=== PATIENT | female | born 1955 | race Caucasian/White ===

== ENCOUNTER 2018-09-21 22:58 | Inpatient (IN) | payer SELFPAY ==
[2018-09-21] MEDS ORDERED: NORMAL SALINE 1000 ML 500 ML IV ONE (23:52)
[2018-09-22 00:14] LABS: APPEARANCE,URINE CLEAR; BILIRUBIN,URINE NEGATIVE (NEGATIVE); COLOR,URINE YELLOW; GLUCOSE, URINE NEGATIVE (NEGATIVE); KETONES,URINE NEGATIVE (NEGATIVE); LEUKOCYTE ESTERASE,URINE NEGATIVE (NEGATIVE); NITRITE,URINE NEGATIVE (NEGATIVE); PROTEIN,URINE NEGATIVE (NEGATIVE); URINE SPECIFIC GRAVITY 1.003; UROBILINOGEN,URINE NEGATIVE mg/dL (<2.0)
[2018-09-22 00:29] LABS: ABSOLUTE BASOPHILS # (AUTO) 0.1 10^3/uL (0.0-0.2); ABSOLUTE EOSINOPHILS # (AUTO) 0.2 10^3/uL (0.0-0.6); ABSOLUTE LYMPHOCYTES (AUTO) 3.3 10^3/uL (0.5-4.7); ABSOLUTE MONOCYTES (AUTO) 0.7 10^3/uL (0.1-1.4); EOSINOPHILS % (AUTO) 2.4 % (0-6); HEMATOCRIT 45.6 % (36.0-47.0); HEMOGLOBIN 15.5 g/dL (12.0-15.5); LYMPHOCYTES % (AUTO) 46.2 % (13-45); MEAN CORPUSCULAR HEMOGLOBIN 31.9 pg (27.0-33.4); MEAN CORPUSCULAR VOLUME 94 fl (80-97); MONOCYTES % (AUTO) 9.4 % (3-13); PLATELET COUNT 247 10^3/uL (150-450); RED BLOOD COUNT 4.85 10^6/uL (3.72-5.28); RED CELL DISTRIBUTION WIDTH 17.3 % (11.5-14.0); TOTAL CELLS COUNTED % (AUTO) 100 %; WHITE BLOOD COUNT 7.2 10^3/uL (4.0-10.5)
[2018-09-22] MEDS ORDERED: DILTIAZEM HCL INJ 25 MG/5 ML VIAL IV ONE (00:32)
--- NOTE | 2018-09-22 00:32 | ER Document Report ---
Entered by JN MCGRAW SCRIBE 09/21/18 [id number] Acting as scribe for:VIVIENNE CALLEJAS MD ED Cardiac - General Chief Complaint: Palpitations Stated Complaint: RAPID HEART RATE,PAIN IN NECK,HEART HISTORY Time Seen by Provider: 09/21/18 23:31 Primary Care Provider: SANTIAGO SALAZAR PA-C [Primary Care Provider] - Follow up as needed Mode of Arrival: Ambulatory Information source: Patient Notes: Patient is a homeless 63-year-old female with SVT who presents to the emergency department today with complaints of an elevated heart rate. Patient did not fill any of the prescriptions that she was discharged with yesterday (09/20/18). Patient states the last medications she has taken were given yesterday morning prior to being discharged from here. Patient states she did drink and smoke since discharge. Patient is currently intoxicated. TRAVEL OUTSIDE OF THE [place] IN LAST 30 DAYS: No - Related Data Allergies/Adverse Reactions: lisinopril Allergy (Verified 09/18/18 02:12) Past Medical History - General Information source: Patient, [facility] Records - Social History Smoking Status: Current Every Day Smoker Cigarette use (# per day): Yes Frequency of alcohol use: Heavy Lives with: Homeless Family History: COPD, Hypertension - Past Medical History Cardiac Medical History: Reports: Hx Atrial Fibrillation, Hx Hypertension Pulmonary Medical History: Reports: Hx COPD GI Medical History: Reports: Hx Hiatal Hernia Psychiatric Medical History: Reports: Hx Depression - anxiety Past Surgical History: Reports: Hx Hysterectomy - Immunizations Hx Pneumococcal Vaccination: 02/17/17 Review of Systems - Review of Systems Constitutional: No symptoms reported EENT: No symptoms reported Cardiovascular: See HPI, Heart racing Respiratory: No symptoms reported Gastrointestinal: No symptoms reported Genitourinary: No symptoms reported Female Genitourinary: No symptoms reported Musculoskeletal: No symptoms reported Skin: No symptoms reported Hematologic/Lymphatic: No symptoms reported Neurological/Psychological: No symptoms reported -: Yes All other systems reviewed and negative Physical Exam - Vital signs Vitals: Temp Pulse Resp BP Pulse Ox 98.4 F 147 H 20 93/74 L 96 09/21/18 23:20 09/21/18 23:20 09/21/18 23:20 09/21/18 23:20 09/21/18 23:20 - Notes Notes: Physical Exam: General: Alert. HEENT: Normocephalic. Atraumatic. PERRL. Extraocular movements intact. Oropharynx clear. Neck: Supple. Non-tender. Respiratory: No respiratory distress. Coarse breath sounds with rhonchi bilaterally consistent with extensive smoking history. Cardiovascular: Tachycardic into the 150s. Abdominal: Normal Inspection. Non-tender. No distension. Normal Bowel Sounds. Back: Grossly normal Extremities: Moves all four extremities. Upper extremities: Normal inspection. Normal ROM. Lower extremities: Normal inspection. No edema. Normal ROM. Neurological: Normal cognition. AAOx4. Normal speech. Psychological: Normal affect. Normal Mood. Skin: Warm. Dry. Normal color. Course - Re-evaluation Re-evalutation: 09/22/18 01:07 Reviewing the monitor shows the patient is in a normal sinus rhythm at this time, with frequent premature beats. The nurse reports that she had not given the patient the Cardizem ordered previously. - Vital Signs Vital signs: Temp Pulse Resp BP Pulse Ox 98.4 F 147 H 17 104/82 95 09/21/18 23:20 09/21/18 23:20 09/22/18 01:01 09/22/18 01:00 09/22/18 01:01 - Laboratory Result Diagrams: 09/21/18 23:50 09/22/18 00:20 Laboratory results interpreted by me: 09/21/18 09/21/18 09/22/18 23:50 23:58 00:20 RDW 17.3 H Seg Neutrophils % 41.0 L Lymphocytes % 46.2 H Sodium Potassium Chloride Carbon Dioxide BUN Creatinine Calcium NT-Pro-B Natriuret Pep 3550 H Total Protein Albumin Urine Blood SMALL H 09/22/18 00:20 RDW Seg Neutrophils % Lymphocytes % Sodium 128.3 L Potassium 3.0 L* Chloride 90 L Carbon Dioxide 31 H BUN 3 L Creatinine 0.45 L Calcium 8.1 L NT-Pro-B Natriuret Pep Total Protein 5.2 L Albumin 3.0 L Urine Blood - Diagnostic Test Radiology reviewed: Image reviewed, Reports reviewed - Chest x-ray shows elevated left hemidiaphragm with mild atelectasis at the bases. There is no change from chest x-ray done 4 days ago. - EKG Interpretation by Ri EKG shows normal: [place], Intervals, QRS Complexes, ST-T Waves. abnormal: Sinus rhythm Rate: Tachycardia - 141 Rhythm: A.Fib - Consults Dr. Mireles Time consulted: 01:11 Consulted provider: will come to ER Critical Care Note - Critical Care Note Total time excluding time spent on procedures (mins): 35 Discharge - Discharge Clinical Impression: Atrial fibrillation with RVR, Homelessness, Noncompliance, Tobacco dependence, Hypokalemia Alcohol intoxication Qualifiers: Complication of substance-induced condition: with unspecified complication Qualified Code(s): F10.929 - Alcohol use, unspecified with intoxication, unspecified Hypotension Qualifiers: Hypotension type: unspecified hypotension type Qualified Code(s): I95.9 - Hypotension, unspecified Condition: Stable Disposition: ADMITTED INPATIENT Admitting Provider: [facility] (Hospitalist) Unit Admitted: I[facility]U Referrals: SANTIAGO SALAZAR PA-C [Primary Care Provider] - Follow up as needed Scribe Attestation: 09/22/18 00:35 I personally performed the services described in the documentation, reviewed and edited the documentation which was dictated to the scribe in my presence, and it accurately records my words and actions. I personally performed the services described in the documentation, reviewed and edited the documentation which was dictated to the scribe in my presence, and it accurately records my words and actions.
[2018-09-22] MEDS ORDERED: DILTIAZEM HCL/D5W 125 MG/125 ML RTUINJ IV PRN ×2 (00:33→01:43)
[2018-09-22 00:52] LABS: ALCOHOL 107 mg/dL (NONE DETECTED); ALKALINE PHOSPHATASE 56 U/L (38-126); ANION GAP 7 (5-19); ASPARTATE AMINO TRANSFERASE 22 U/L (14-36); BILIRUBIN,DIRECT 0.2 mg/dL (0.0-0.4); BILIRUBIN,TOTAL 0.4 mg/dL (0.2-1.3); BLOOD UREA NITROGEN 3 mg/dL (7-20); CALCIUM 8.1 mg/dL (8.4-10.2); CARBON DIOXIDE 31 mmol/L (22-30); CHLORIDE 90 mmol/L (98-107); CREATINE KINASE 54 U/L (30-135); GLUCOSE 79 mg/dL (75-110); TOTAL PROTEIN 5.2 g/dL (6.3-8.2)
[2018-09-22] MEDS ORDERED: POTASSIUM CHLORIDE 20 MEQ PACKET PO ONE (01:04)
[2018-09-22 01:07] LABS: CREATINE KINASE MB 1.01 ng/mL (<4.55); NT PRO BNP 3550 pg/mL (5-900)
[2018-09-22 01:09] LABS: TROPONIN I < 0.012 ng/mL
--- NOTE | 2018-09-22 01:32 | RADIOLOGY REPORT (SQ) ---
CLINICAL HISTORY: A. fib with RVR COMPARISON: September 18, 2018. TECHNIQUE: XR CHEST 1 VIEW 09/21/2018 11:38 PM CDT FINDINGS: Cardiac silhouette is normal in size. Lungs are clear without consolidation, atelectasis, mass or edema. There is no pleural effusion. There is no pneumothorax. There are no acute osseous findings. Left diaphragm is elevated. IMPRESSION: Clear lungs.
[2018-09-22] MEDS ORDERED: IPRATROPIUM/ALBUTEROL 0.5-2.5 MG/3 ML AMPUL NEB PRN (01:40)
[2018-09-22] MEDS ORDERED: ENOXAPARIN SODIUM INJ 60 MG/0.6 ML DISP.SYRIN SUBCUT ONE (02:15)
[2018-09-22 02:36] LABS: URINE AMPHETAMINES SCREEN NEGATIVE; URINE BARBITURATES SCREEN NEGATIVE; URINE BENZODIAZEPINES SCREEN NEGATIVE; URINE COCAINE SCREEN NEGATIVE; URINE MARIJUANA (THC) SCREEN NEGATIVE; URINE METHADONE SCREEN NEGATIVE; URINE PHENCYCLIDINE SCREEN NEGATIVE
[2018-09-22] MEDS: MAGNESIUM SULFATE/D5W 1 GM/100 ML RTUPB IV SCH ×3 (03:03→06:40)
[2018-09-22] MEDS: PANTOPRAZOLE SODIUM 40 MG TABLET.DR PO SCH ×2 (05:23→18:24)
[2018-09-22] MEDS ORDERED: LEVALBUTEROL HCL NEB 1.25 MG/3 ML AMPUL NEB PRN (05:56)
--- NOTE | 2018-09-22 05:56 | PDOC H&P ---
History of Present Illness Admission Date/PCP: 09/22/18 01:23 SANTIAGO SALAZAR PA-C Patient complains of: Palpitations History of Present Illness: JOSE M PINEDA is a 63 year old female with a past medical history of oxygen dependent COPD, paroxysmal atrial fibrillation without anticoagulation, tobacco and alcohol dependence. She was admitted for exacerbation of the above September 18, discharged September 20, 2018 but failed to fill prescriptions or modify lifestyl e. She presents acutely intoxicated with palpitations and a heart rate of 150, hypomagnesemia, hypo-kalemia and hyponatremia. She is started on IV Cardizem and referred to the hospitalist for admission. Patient states she is now homeless. Past Medical History Cardiac Medical History: Reports: Atrial Fibrillation, Hypertension Pulmonary Medical History: Reports: Chronic Obstructive Pulmonary Disease (COPD) GI Medical History: Reports: Hiatal Hernia Psychiatric Medical History: Reports: Alcohol Dependency, Depression - anxiety, Tobacco Dependency Past Surgical History Past Surgical History: Reports: Hysterectomy Social History Information Source: Patient, [facility] Records Lives with: Homeless Smoking Status: Current Every Day Smoker Frequency of Alcohol Use: Heavy Hx Recreational Drug Use: No Drugs: None Hx Prescription Drug Abuse: No - Advance Directive Resuscitation Status: Full Code Family History Family History: COPD, Hypertension Parental Family History Reviewed: Yes Children Family History Reviewed: Yes Sibling(s) Family History Reviewed.: Yes Medication/Allergy Home Medications: Duloxetine HCl [Cymbalta] 60 mg PO Q12 09/18/18 Magnesium Oxide [Mag-Ox 400 mg Tablet] 400 mg PO BID 09/18/18 Metoprolol Tartrate [Lopressor 50 mg Tablet] 50 mg PO Q12 09/18/18 Potassium Chloride [Klor-Con 10 Meq Capsule ER] 20 meq PO DAILY 09/18/18 Acetaminophen [Tylenol 325 mg Tablet] 650 mg PO Q4HP PRN tablet 09/20/18 Albuterol Sulfate [Proair Hfa Inhalation Aerosol 8.5 gm Mdi] 2 puff IH Q4HP PRN #1 mdi 09/20/18 Aspirin [Aspirin 81 mg Chewable Tablet] 81 mg PO DAILY #90 tab.chew 09/20/18 Clonazepam [Klonopin 1 mg Tablet] 1 mg PO TID #10 tablet 09/20/18 Diltiazem HCl [Diltiazem 12Hr ER] 120 mg PO BID #60 cap.er.12h 09/20/18 Docusate Sodium [Colace 100 mg Capsule] 100 mg PO BID capsule 09/20/18 Fluticasone Propionate [Flonase Nasal [place] 50 Mcg/[place] 16 gm] 2 spray NASL Q12 #1 spray.pump 09/20/18 Fluticasone/Vilanterol [Breo 200-25 Mcg Ellipta 14 Dose/Dpi] 1 inh IH DAILY #1 inhaler 09/20/18 Montelukast Sodium [Singulair 10 mg Tablet] 10 mg PO DAILY #30 tablet 09/20/18 Nicotine [Nicoderm 21 mg/24 Hr Transderm Patch] 1 each TD DAILY #30 patch.td24 09/20/18 Tiotropium [place] [Spiriva [place]er 5 Cap/Kit (18 Mcg/Cap)] 1 cap IH DAILY #1 kit 09/20/18 Allergies/Adverse Reactions: lisinopril Allergy (Verified 09/18/18 02:12) Review of Systems ROS unobtainable: Due to mental status Physical Exam Vital Signs: Temp Pulse Resp BP Pulse Ox 97.6 F 84 16 116/77 90 L 09/22/18 05:28 09/22/18 05:28 09/22/18 05:28 09/22/18 05:28 09/22/18 05:28 Intake & Output 09/20/18 09/21/18 09/22/18 11:59 11:59 11:59 Intake Total 700 Balance 700 Weight 55.7 kg General appearance: PRESENT: cooperative, disheveled, well-developed. ABSENT: well-nourished Head exam: PRESENT: atraumatic, normocephalic Eye exam: PRESENT: conjunctiva pink, EOMI, PERRLA. ABSENT: scleral icterus Ear exam: PRESENT: normal external ear exam Mouth exam: PRESENT: moist, tongue midline Neck exam: ABSENT: carotid bruit, JVD, lymphadenopathy, thyromegaly Respiratory exam: PRESENT: accessory muscle use, clear to auscultation karlo. ABSENT: rales, rhonchi, wheezes Cardiovascular exam: PRESENT: irregular rhythm. ABSENT: diastolic murmur, rubs, systolic murmur Pulses: PRESENT: normal dorsalis pedis pul Vascular exam: PRESENT: normal capillary refill GI/Abdominal exam: PRESENT: normal bowel sounds, soft. ABSENT: distended, guarding, mass, organolmegaly, rebound, tenderness Rectal exam: PRESENT: deferred Extremities exam: PRESENT: full ROM. ABSENT: calf tenderness, clubbing, pedal edema Neurological exam: PRESENT: alert, altered, awake, oriented to person, oriented to place, CN II-XII grossly intact Psychiatric exam: PRESENT: appropriate affect, normal mood, unusual affect. ABSENT: homicidal ideation, suicidal ideation Skin exam: PRESENT: dry, intact, warm. ABSENT: cyanosis, rash Results Laboratory Results: 09/21/18 23:50 09/22/18 00:20 09/21/18 09/21/18 09/21/18 23:50 23:50 23:58 WBC 7.2 RBC 4.85 Hgb 15.5 Hct 45.6 MCV 94 MCH 31.9 MCHC 34.0 RDW 17.3 H Plt Count 247 Seg Neutrophils % 41.0 L Lymphocytes % 46.2 H Monocytes % 9.4 Eosinophils % 2.4 Basophils % 1.0 Absolute Neutrophils 3.0 Absolute Lymphocytes 3.3 Absolute Monocytes 0.7 Absolute Eosinophils 0.2 Absolute Basophils 0.1 Sodium Cancelled Potassium Cancelled Chloride Cancelled Carbon Dioxide Cancelled Anion Gap Cancelled BUN Cancelled Creatinine Cancelled Est GFR ( Amer) Cancelled Est GFR (Non-Af Amer) Cancelled Glucose Cancelled Calcium Cancelled Magnesium Total Bilirubin Cancelled AST Cancelled Alkaline Phosphatase Cancelled Total Protein Cancelled Albumin Cancelled Urine Color YELLOW Urine Appearance CLEAR Urine pH 6.0 Ur Specific [place] 1.003 Urine Protein NEGATIVE Urine Glucose (UA) NEGATIVE Urine Ketones NEGATIVE Urine Blood SMALL H Urine Nitrite NEGATIVE Ur Leukocyte Esterase NEGATIVE Urine WBC (Auto) 2 Urine RBC (Auto) 1 09/22/18 09/22/18 00:20 00:20 WBC RBC Hgb Hct MCV MCH MCHC RDW Plt Count Seg Neutrophils % Lymphocytes % Monocytes % Eosinophils % Basophils % Absolute Neutrophils Absolute Lymphocytes Absolute Monocytes Absolute Eosinophils Absolute Basophils Sodium 128.3 L Potassium 3.0 L* Chloride 90 L Carbon Dioxide 31 H Anion Gap 7 BUN 3 L Creatinine 0.45 L Est GFR ( Amer) > 60 Est GFR (Non-Af Amer) > 60 Glucose 79 Calcium 8.1 L Magnesium 1.3 L Total Bilirubin 0.4 AST 22 Alkaline Phosphatase 56 Total Protein 5.2 L Albumin 3.0 L Urine Color Urine Appearance Urine pH Ur Specific [place] Urine Protein Urine Glucose (UA) Urine Ketones Urine Blood Urine Nitrite Ur Leukocyte Esterase Urine WBC (Auto) Urine RBC (Auto) 09/21/18 09/21/18 09/22/18 23:50 23:50 00:20 Creatine Kinase Cancelled CK-MB (CK-2) Cancelled 1.01 Troponin I Cancelled < 0.012 NT-Pro-B Natriuret Pep Cancelled 3550 H 09/22/18 00:20 Creatine Kinase 54 CK-MB (CK-2) Troponin I NT-Pro-B Natriuret Pep Impressions: Chest X-Ray 09/21/18 23:38 IMPRESSION: Clear lungs. Assessment and Plan - Diagnosis (1) Atrial fibrillation with RVR Is this a current diagnosis for this admission?: Yes Plan: Secondary to noncompliance, some decompensation of COPD, IV Cardizem and anticoagulation (2) Hyponatremia Is this a current diagnosis for this admission?: Yes Plan: Volume overload, fluid restriction. Follow-up chemistry (3) Hypomagnesemia Is this a current diagnosis for this admission?: Yes Plan: Repletion and reevaluation of chemistry and magnesium (4) Alcohol intoxication Qualifiers: Complication of substance-induced condition: with unspecified complication Qualified Code(s): F10.929 - Alcohol use, unspecified with intoxication, unspecified Is this a current diagnosis for this admission?: Yes Plan: Thiamine, folic acid, supportive measures, discharge planning (5) Hypokalemia Is this a current diagnosis for this admission?: Yes Plan: Possible artifact from hypomagnesemia, replete both and reevaluate chemistry (6) Tobacco dependence Is this a current diagnosis for this admission?: Yes Plan: Cessation counseling and nicotine replacement offered - Time Time Spent with patient: 35 or more minutes - Inpatient Certification Medical Necessity: Need Close Monitoring Due to Risk of Patient Decompensation
[2018-09-22] MEDS ORDERED: HEPARIN SOD (PORCINE) 5,000 UNIT/ML 1 ML VIAL SUBCUT SCH (06:00)
[2018-09-22 07:19] LABS: ANION GAP 5 (5-19); BLOOD UREA NITROGEN 4 mg/dL (7-20); CALCIUM 8.5 mg/dL (8.4-10.2); CARBON DIOXIDE 35 mmol/L (22-30); CHLORIDE 95 mmol/L (98-107); GLUCOSE 88 mg/dL (75-110)
--- NOTE | 2018-09-22 07:37 | EKG REPORT ---
SEVERITY:- ABNORMAL ECG - ATRIAL FIBRILLATION,RVR, V-RATE 106-163 : Confirmed by: Dwayne Cruz MD 22-Sep-2018 07:36:21
[2018-09-22] MEDS ORDERED: IPRATROPIUM BROMIDE 0.02% NEB 0.5 MG/2.5 ML AMPUL NEB SCH (08:00)
[2018-09-22] MEDS: IPRATROPIUM BROMIDE 0.02% NEB 0.5 MG/2.5 ML AMPUL NEB SCH ×2 (08:10→16:30)
[2018-09-22] MEDS: FOLIC ACID 1 MG TABLET PO SCH (09:59)
[2018-09-22] MEDS: ENOXAPARIN SODIUM INJ 60 MG/0.6 ML DISP.SYRIN SUBCUT SCH ×2 (09:59→21:47)
[2018-09-22] MEDS: THIAMINE HCL 100 MG TABLET PO SCH (09:59)
--- NOTE | 2018-09-22 18:29 | EKG REPORT ---
SEVERITY:- BORDERLINE ECG - SINUS RHYTHM BORDERLINE T ABNORMALITIES, ANT-LAT LEADS : Confirmed by: Dwayne Cruz MD 22-Sep-2018 18:28:38
[2018-09-23] MEDS: IPRATROPIUM BROMIDE 0.02% NEB 0.5 MG/2.5 ML AMPUL NEB SCH ×2 (00:25→08:40)
[2018-09-23 04:51] LABS: HEMATOCRIT 42.4 % (36.0-47.0); HEMOGLOBIN 14.2 g/dL (12.0-15.5); MEAN CORPUSCULAR HEMOGLOBIN 31.8 pg (27.0-33.4); MEAN CORPUSCULAR HGB CONC 33.6 g/dL (32.0-36.0); MEAN CORPUSCULAR VOLUME 95 fl (80-97); PLATELET COUNT 190 10^3/uL (150-450); RED BLOOD COUNT 4.48 10^6/uL (3.72-5.28); RED CELL DISTRIBUTION WIDTH 17.2 % (11.5-14.0); WHITE BLOOD COUNT 5.2 10^3/uL (4.0-10.5)
[2018-09-23] MEDS: PANTOPRAZOLE SODIUM 40 MG TABLET.DR PO SCH (05:12)
[2018-09-23 05:15] LABS: BLOOD UREA NITROGEN 8 mg/dL (7-20); CALCIUM 9.1 mg/dL (8.4-10.2); CARBON DIOXIDE 36 mmol/L (22-30); GLUCOSE 93 mg/dL (75-110); POTASSIUM 4.7 mmol/L (3.6-5.0)
[2018-09-23 05:20] LABS: ANION GAP 4 (5-19); CHLORIDE 100 mmol/L (98-107)
[2018-09-23 06:06] LABS: APPEARANCE,URINE CLEAR; BILIRUBIN,URINE NEGATIVE (NEGATIVE); COLOR,URINE YELLOW; GLUCOSE, URINE NEGATIVE (NEGATIVE); KETONES,URINE NEGATIVE (NEGATIVE); LEUKOCYTE ESTERASE,URINE TRACE (NEGATIVE); NITRITE,URINE NEGATIVE (NEGATIVE); PROTEIN,URINE NEGATIVE (NEGATIVE); URINE SPECIFIC GRAVITY 1.006; UROBILINOGEN,URINE NEGATIVE mg/dL (<2.0)
--- NOTE | 2018-09-23 06:35 | PDOC PROGRESS REPORT ---
Subjective Progress Note for:: 09/22/18 Subjective:: Patient resting comfortably in bed. She denies any chest pain or shortness of breath. She feels comfortable. Reason For Visit: AFIB Hypertension Physical Exam Vital Signs: Temp Pulse Resp BP Pulse Ox 98.0 F 86 18 111/75 90 L 09/22/18 08:02 09/22/18 08:10 09/22/18 08:10 09/22/18 08:02 09/22/18 08:10 Intake & Output 09/21/18 09/22/18 09/23/18 06:59 06:59 06:59 Intake Total 700 Balance 700 Weight 56.3 kg General appearance: PRESENT: no acute distress, cooperative, well-developed Head exam: PRESENT: atraumatic, normocephalic Eye exam: PRESENT: conjunctiva pink. ABSENT: scleral icterus Ear exam: PRESENT: normal external ear exam Mouth exam: PRESENT: moist, tongue midline Respiratory exam: PRESENT: clear to auscultation karlo, decreased breath sounds - At bases, symmetrical, unlabored. ABSENT: accessory muscle use, rales, rhonchi, tachypnea, wheezes Cardiovascular exam: PRESENT: RRR, +S1, +S2, other - Did not appreciate any murmurs or additional heart sounds. GI/Abdominal exam: PRESENT: normal bowel sounds, soft. ABSENT: distended, tenderness Rectal exam: PRESENT: deferred Extremities exam: ABSENT: joint swelling, pedal edema Musculoskeletal exam: PRESENT: ambulatory, normal inspection Neurological exam: PRESENT: alert, awake, oriented to person, oriented to place, oriented to time, oriented to situation, CN II-XII grossly intact Psychiatric exam: PRESENT: appropriate affect, normal mood. ABSENT: agitated, anxious Focused psych exam: ABSENT: delusional, pressured speech, restlessness Skin exam: PRESENT: dry, warm. ABSENT: rash Results Laboratory Results: 09/21/18 23:50 09/22/18 06:47 09/21/18 09/21/18 09/21/18 23:50 23:50 23:58 WBC 7.2 RBC 4.85 Hgb 15.5 Hct 45.6 MCV 94 MCH 31.9 MCHC 34.0 RDW 17.3 H Plt Count 247 Seg Neutrophils % 41.0 L Lymphocytes % 46.2 H Monocytes % 9.4 Eosinophils % 2.4 Basophils % 1.0 Absolute Neutrophils 3.0 Absolute Lymphocytes 3.3 Absolute Monocytes 0.7 Absolute Eosinophils 0.2 Absolute Basophils 0.1 Sodium Cancelled Potassium Cancelled Chloride Cancelled Carbon Dioxide Cancelled Anion Gap Cancelled BUN Cancelled Creatinine Cancelled Est GFR ( Amer) Cancelled Est GFR (Non-Af Amer) Cancelled Glucose Cancelled Calcium Cancelled Magnesium Total Bilirubin Cancelled AST Cancelled Alkaline Phosphatase Cancelled Total Protein Cancelled Albumin Cancelled Urine Color YELLOW Urine Appearance CLEAR Urine pH 6.0 Ur Specific [place] 1.003 Urine Protein NEGATIVE Urine Glucose (UA) NEGATIVE Urine Ketones NEGATIVE Urine Blood SMALL H Urine Nitrite NEGATIVE Ur Leukocyte Esterase NEGATIVE Urine WBC (Auto) 2 Urine RBC (Auto) 1 09/22/18 09/22/18 09/22/18 00:20 00:20 06:47 WBC RBC Hgb Hct MCV MCH MCHC RDW Plt Count Seg Neutrophils % Lymphocytes % Monocytes % Eosinophils % Basophils % Absolute Neutrophils Absolute Lymphocytes Absolute Monocytes Absolute Eosinophils Absolute Basophils Sodium 128.3 L 135.1 L Potassium 3.0 L* 4.0 D Chloride 90 L 95 L Carbon Dioxide 31 H 35 H Anion Gap 7 5 BUN 3 L 4 L Creatinine 0.45 L 0.45 L Est GFR ( Amer) > 60 > 60 Est GFR (Non-Af Amer) > 60 > 60 Glucose 79 88 Calcium 8.1 L 8.5 Magnesium 1.3 L Total Bilirubin 0.4 AST 22 Alkaline Phosphatase 56 Total Protein 5.2 L Albumin 3.0 L Urine Color Urine Appearance Urine pH Ur Specific [place] Urine Protein Urine Glucose (UA) Urine Ketones Urine Blood Urine Nitrite Ur Leukocyte Esterase Urine WBC (Auto) Urine RBC (Auto) 09/21/18 09/21/18 09/22/18 23:50 23:50 00:20 Creatine Kinase Cancelled CK-MB (CK-2) Cancelled 1.01 Troponin I Cancelled < 0.012 NT-Pro-B Natriuret Pep Cancelled 3550 H 09/22/18 09/22/18 00:20 06:47 Creatine Kinase 54 CK-MB (CK-2) Troponin I < 0.012 NT-Pro-B Natriuret Pep Impressions: Chest X-Ray 09/21/18 23:38 IMPRESSION: Clear lungs. Assessment and Plan - Diagnosis (1) Atrial fibrillation with RVR Is this a current diagnosis for this admission?: Yes Plan: Secondary to noncompliance, some decompensation of COPD, IV Cardizem and anticoagulation 09/22/2018-back on diltiazem the patient in fact is in sinus rhythm. She was given 10 mg of intravenous diltiazem. Because she exhibits good rate control I will start her on low-dose metoprolol succinate 25 mg daily. I will resume her aspirin 81 mg daily. Her noncompliance puts her at high risk regarding anticoagulation therapy. (2) Hyponatremia Is this a current diagnosis for this admission?: Yes Plan: Volume overload, fluid restriction. Follow-up chemistry 09/22/2018-with fluid restriction the patient's serum sodium is normal. We will gradually increase her fluid allowance. Follow-up serum sodium level as an outpatient. (3) Hypomagnesemia Is this a current diagnosis for this admission?: Yes Plan: 09/22/2018-without magnesium supplement her magnesium has normalized. Continue to monitor magnesium level. (4) Alcohol intoxication Qualifiers: Complication of substance-induced condition: with unspecified complication Qualified Code(s): F10.929 - Alcohol use, unspecified with intoxication, unspecified Is this a current diagnosis for this admission?: Yes Plan: Thiamine, folic acid, supportive measures, discharge planning 09/22/2018-continue to encourage abstinence. (5) Hypokalemia Is this a current diagnosis for this admission?: Yes Plan: She was given a dose of potassium chloride and serum potassium level is normal. (6) Tobacco dependence Is this a current diagnosis for this admission?: Yes Plan: 09/22/2018-encourage cessation. - Time Time Spent with patient: 15-24 minutes Medications reviewed and adjusted accordingly: Yes Anticipated discharge: Home Within: within 24 hours
[2018-09-23] MEDS ORDERED: MAGNESIUM OXIDE 400 MG TABLET PO SCH (08:00)
[2018-09-23] MEDS ORDERED: METOPROLOL SUCCINATE 25 MG TAB.SR.24H PO SCH (10:00)
[2018-09-23] MEDS ORDERED: ASPIRIN 81 MG TABLET, CHEWABLE PO SCH (10:00)
[2018-09-23] MEDS: ENOXAPARIN SODIUM INJ 60 MG/0.6 ML DISP.SYRIN SUBCUT SCH (10:20)
[2018-09-23] MEDS: THIAMINE HCL 100 MG TABLET PO SCH (10:24)
[2018-09-23] MEDS: FOLIC ACID 1 MG TABLET PO SCH (10:24)
--- NOTE | 2018-09-23 10:40 | PDOC DISCHARGE SUMMARY ---
General - Admit/Disc Date/PCP Admission Date/Primary Care Provider: 09/22/18 01:23 SANTIAGO SALAZAR PA-C Discharge Date: 09/23/18 - Discharge Diagnosis (1) Atrial fibrillation with RVR Is this a current diagnosis for this admission?: Yes Summary: The patient is supposed to be on metoprolol at home. I do not believe she was taking her medication. With 1 dose of IV diltiazem she is back in sinus rhythm. Her pulse rate is well controlled and so I have instructed her to decrease her metoprolol (which she has at home) from 50 mg twice daily to 25 mg twice daily. She will continue aspirin therapy. (2) Hyponatremia Is this a current diagnosis for this admission?: Yes Summary: Resolved. Follow-up with primary care provider for electrolyte testing. (3) Hypomagnesemia Is this a current diagnosis for this admission?: Yes Summary: Continue magnesium oxide 400 mg twice daily as an outpatient. (4) Alcohol intoxication Is this a current diagnosis for this admission?: Yes Summary: Serum alcohol level was 107 on admission. Suggest abstinence. (5) Hypokalemia Is this a current diagnosis for this admission?: Yes (6) Tobacco dependence Is this a current diagnosis for this admission?: Yes Summary: Patient is a former nurse. I strongly encouraged her to discontinue tobacco use as she is certainly familiar with the risks. - Additional Information Resuscitation Status: Full Code Discharge Diet: Cardiac Discharge Activity: Activity As Tolerated Prescriptions: Metoprolol Tartrate [Lopressor 25 mg Tablet] 25 mg PO Q12 #60 tab Home Medications: Magnesium Oxide [Mag-Ox 400 mg Tablet] 400 mg PO BID 09/18/18 Albuterol Sulfate [Proair HFA Inhalation Aerosol 8.5 gm MDI] 2 puff IH Q4HP PRN #1 mdi 09/20/18 Aspirin [Aspirin 81 mg Chewable Tablet] 81 mg PO DAILY #90 tab.chew 09/20/18 Clonazepam [Klonopin 1 mg Tablet] 1 mg PO TID #10 tablet 09/20/18 Montelukast Sodium [Singulair 10 mg Tablet] 10 mg PO DAILY #30 tablet 09/20/18 Folic Acid [Folvite 1 mg Tablet] 1 mg PO DAILY tablet 09/23/18 Metoprolol Tartrate [Lopressor 25 mg Tablet] 25 mg PO Q12 #60 tab 09/23/18 History of Present Illness Patient complains of: Rapid heart rate History of Present Illness: JOSE M PINEDA is a 63 year old female with a history of hypertension, COPD, alcoh ol dependence and tobacco dependence. She was just discharged from the hospital September 20. She returns acutely intoxicated. She never filled her prescriptions from her discharge. She was in atrial fibrillation with rapid ventricular response. She received 1 dose of IV diltiazem and converted back to sinus rhythm. Her biggest issues are her tobacco and alcohol dependence. I did ask her to follow-up with her primary care provider for ongoing management. She does have an albuterol inhaler for as needed use. She might benefit from pulmonary function testing as an outpatient with medication modification based on those results. We will test her on room air and if her oxygen saturation is below 88% we will order home oxygen therapy. Hospital Course Hospital Course: She had an unremarkable hospital course. Electrolyte abnormalities corrected q uickly. As noted above she converted to normal sinus rhythm with excellent rate control. She states that she is on metoprolol tartrate 50 mg twice daily at home. I suggested she decrease her dose but otherwise is stable for discharge. Physical Exam Vital Signs: Temp Pulse Resp BP Pulse Ox 97.9 F 75 18 120/73 90 L 09/23/18 07:15 09/23/18 08:42 09/23/18 08:42 09/23/18 07:15 09/23/18 08:42 Intake & Output 09/22/18 09/23/18 09/24/18 06:59 06:59 06:59 Intake Total 700 984 Output Total 500 Balance 700 484 Weight 56.3 kg 52.4 kg General appearance: PRESENT: no acute distress, thin, well-developed Head exam: PRESENT: atraumatic, normocephalic Eye exam: PRESENT: conjunctiva pink. ABSENT: scleral icterus Ear exam: PRESENT: normal external ear exam Respiratory exam: PRESENT: clear to auscultation karlo, symmetrical, unlabored. ABSENT: rales, rhonchi, tachypnea, wheezes Cardiovascular exam: PRESENT: RRR, +S1, +S2 GI/Abdominal exam: PRESENT: normal bowel sounds, soft. ABSENT: distended, tenderness Rectal exam: PRESENT: deferred Gentrourinary exam: ABSENT: indwelling catheter Extremities exam: ABSENT: joint swelling, pedal edema Musculoskeletal exam: PRESENT: normal inspection Neurological exam: PRESENT: alert, awake, oriented to person, oriented to place, oriented to time, oriented to situation, CN II-XII grossly intact Psychiatric exam: PRESENT: appropriate affect. ABSENT: agitated, anxious Focused psych exam: ABSENT: delusional, restlessness Results Laboratory Results: 09/23/18 04:11 09/23/18 04:11 09/23/18 09/23/18 09/23/18 04:11 04:11 05:20 WBC 5.2 RBC 4.48 Hgb 14.2 Hct 42.4 MCV 95 MCH 31.8 MCHC 33.6 RDW 17.2 H Plt Count 190 Sodium 139.8 Potassium 4.7 Chloride 100 Carbon Dioxide 36 H Anion Gap 4 L BUN 8 Creatinine 0.65 Est GFR ( Amer) > 60 Est GFR (Non-Af Amer) > 60 Glucose 93 Calcium 9.1 Magnesium 2.1 Urine Color YELLOW Urine Appearance CLEAR Urine pH 6.0 Ur Specific [place] 1.006 Urine Protein NEGATIVE Urine Glucose (UA) NEGATIVE Urine Ketones NEGATIVE Urine Blood NEGATIVE Urine Nitrite NEGATIVE Ur Leukocyte Esterase TRACE H Urine WBC (Auto) 2 Urine RBC (Auto) 0 09/21/18 09/21/18 09/22/18 23:50 23:50 00:20 Creatine Kinase Cancelled CK-MB (CK-2) Cancelled 1.01 Troponin I Cancelled < 0.012 NT-Pro-B Natriuret Pep Cancelled 3550 H 09/22/18 09/22/18 09/22/18 00:20 06:47 13:11 Creatine Kinase 54 CK-MB (CK-2) Troponin I < 0.012 < 0.012 NT-Pro-B Natriuret Pep 09/22/18 09/23/18 18:38 04:11 Creatine Kinase CK-MB (CK-2) Troponin I < 0.012 NT-Pro-B Natriuret Pep 1010 H Impressions: Chest X-Ray 09/21/18 23:38 IMPRESSION: Clear lungs. Qualifiers - * PATIENT BEING DISCHARGED WITH ANY OF THE FOLLOWING DIAGNOSIS: No Acute Heart Failure - Is this a Heart Failure Patient?: No Plan Discharge Plan: Discharging to home. If resting oximetry is less than 88% will prescribe home oxygen therapy. Patient states that she does not wear oxygen at home normally. Time Spent: Greater than 30 Minutes
[2018-09-23 12:11] VITALS: BP 93/74
== END 2018-09-23 13:05 | disposition home or self-care (01) | DRG 309 ==
LOC: ER 22:58 → EH 09-22 01:23 → 3W 09-22 05:13
PROVIDERS: ADMIT Internal Medicine; ATTEND Internal Medicine
DX: I48.91 Unspecified atrial fibrillation (principal); E87.1 Hypo-osmolality and hyponatremia; F10.229 Alcohol dependence with intoxication, unspecified; E87.6 Hypokalemia; E83.42 Hypomagnesemia; I10 Essential (primary) hypertension; R00.2 Palpitations; J44.9 Chronic obstructive pulmonary disease, unspecified; F41.8 Other specified anxiety disorders; F17.210 Nicotine dependence, cigarettes, uncomplicated; Y90.5 Blood alcohol level of 100-119 mg/100 ml; Z59.0 Homelessness; Z91.14 Patient's other noncompliance with medication regimen
CPT/HCPCS: 36415; 71045; 80048; 80053; 80307; 81001; 82550; 82553; 83735; 83880; 84484; 85025; 85027; 93005; 93010; 94667; 94668; 94799; 96361; 96374; 99291; J1650; J3475; J3490; J7030